=== PATIENT | male | born 1980 | race Caucasian/White ===

== ENCOUNTER 2019-02-17 01:51 | Inpatient (IN) | payer MEDICAID ==
[~2019-02-17] VITALS: Ht 177.8 cm; Wt 84.1 kg
[2019-02-17 01:57] VITALS: Ht 177.8 cm; Wt 84.1 kg
[2019-02-17 03:29] LABS: PLATELET COUNT 166 x10^3mcL (130-400)
[2019-02-17 03:34] LABS: BASOPHIL % 0 % (0-2)
[2019-02-17 03:48] LABS: CALCIUM 9.2 mg/dL (8.5-10.1); CARBON DIOXIDE 25.1 mmol/L (21-32); CHLORIDE SERUM 103 mmol/L (98-107); CREATININE SERUM 1.1 mg/dL (0.7-1.3); GFR1 > 60 mL/min; GLUCOSE SERUM 147 mg/dL (74-106); SODIUM SERUM 139 mmol/L (136-145)
[2019-02-17 03:52] LABS: ALKALINE PHOSPHATASE 88 U/L (46-116); ALT/SGPT 50 U/L (16-63); AMYLASE 53 U/L (25-115); AST/SGOT 19 U/L (15-37); BILIRUBIN TOTAL 1.29 mg/dL (0.20-1.00); LIPASE 251 IU/L (73-393); TOTAL PROTEIN, SERUM 7.4 g/dL (6.4-8.2)
[2019-02-17 05:56] LABS: MAGNESIUM 1.5 mg/dL (1.8-2.4)
[2019-02-17 06:37] LABS: AMPHETAMINE QUAL UR NONE DETECTED (See below)
[2019-02-17 08:37] LABS: microscopic required? YES; urine erythrocyte NEGATIVE (NEGATIVE)
[2019-02-17 10:28] VITALS: BP 114/79
[2019-02-17 16:02] VITALS: BP 115/71
[2019-02-17 17:29] VITALS: BP 109/70
[2019-02-17 20:32] VITALS: BP 106/63
[2019-02-18 05:12] VITALS: BP 106/72
[2019-02-18] MEDS ORDERED: IBUPROFEN400 MG PO (09:02)
[2019-02-18] MEDS ORDERED: LEVAQUIN750 MG PO (09:03)
[2019-02-18 09:20] VITALS: BP 109/76
[2019-02-18] MEDS ORDERED: NORCO1 TA2 PO (10:13)
[2019-02-18 10:31] VITALS: BP 109/76
[2019-02-18 10:55] LABS: BASOPHIL % 0.7 % (0-2); PLATELET COUNT 153 x10^3mcL (130-400); RED CELL DISTRIBUTION WIDTH 13.5 % (11.5-14.5)
== END 2019-02-18 13:39 | disposition home or self-care (01) | DRG 234 ==
LOC: ED 01:51 → MU 05:23
PROVIDERS: Specialist; Surgery; ADMIT Internal Medicine
PROC: 0DTJ4ZZ Resection of Appendix, Percutaneous Endoscopic Approach (ICD-10-PCS; principal; 2019-02-17 10:30)
DX: K35.80 Unspecified acute appendicitis (principal); E83.39 Other disorders of phosphorus metabolism; E83.42 Hypomagnesemia; F12.10 Cannabis abuse, uncomplicated; J45.909 Unspecified asthma, uncomplicated; F17.210 Nicotine dependence, cigarettes, uncomplicated; Z68.26 Body mass index [BMI] 26.0-26.9, adult
CPT/HCPCS: J0330; J0690; J0694; J1170; J2250; J2270; J2405; J3010; J3490; J7030